=== PATIENT | male | born 2000 | race Caucasian/White ===

== ENCOUNTER 2020-06-29 15:52 | Outpatient (CLI) | payer BC, SELFPAY ==
--- NOTE | ~2020-06-29 | CT_ITS ---
EXAMINATION: CT soft tissue neck w con EXAM DATE: 06/29/2020 16:39 INDICATION: Right-sided neck swelling, mass, lump. TECHNIQUE: Spiral CT of the neck was performed following intravenous injection of 75 mL Omnipaque 350 . Axial, coronal and sagittal images were reviewed. The dose-length product (DLP) for this examinat ion was 625.05 mGy-cm. The exposure was tailored according to patient size (auto mA exposure control ), and iterative reconstruction (ASIR) was used as additional dose reduction technique. There is no prior study for comparison. FINDINGS: There is a right-sided cystic along the internal jugular chain measuring 3.0 x 3.5 cm, at t he level of the hyoid bone. There is very thin rind of soft tissue component identified medially, wou ld be difficult to biopsy this soft tissue component percutaneously without extending pharyngeal vishal on. Differential diagnosis includes pathological necrotic lymph node, branchial cleft cyst and cystic hygroma. Otherwise, no cervical lymphadenopathy or masses. Cystic lymphadenopathy can be caused by g ranulomatous process, malignancy. The thyroid gland is unremarkable. The submandibular and parotid glands are symmetric. The superi or mediastinum is unremarkable. The airway is unremarkable. Parapharyngeal and pre-glottic fat pl anes are preserved. The opacified vasculature is patent. The orbits are unremarkable. Visualize d sinuses and mastoid air cells are well aerated. Lung apices are clear. There is cervical spondyl osis. IMPRESSION: Right cervical cystic mass, differential diagnosis including necrotic internal jugular ch ain lymph node, branchial cleft cyst, cystic hygroma. Recommend ENT consult. Reviewed, dictated and finalized at location A. IMPRESSION: Right cervical cystic mass, differential diagnosis including necrot ic internal jugular chain lymph node, branchial cleft cyst, cystic hygroma. Rec [facility] ENT consult.
== END 2020-06-29 15:53 | disposition home or self-care (01) ==
PROVIDERS: PCP Physician Assistant; Visit Provider Physician Assistant
DX: M79.89 Other specified soft tissue disorders (principal)
CPT/HCPCS: 70491; Q9967